=== PATIENT | female | born 1995 | race Caucasian/White ===

== ENCOUNTER → 2017-01-11 | Outpatient (CLI) | payer BC ==
[2017-01-11 12:57] LABS: INFLUENZA A AG SCREEN NEGATIVE (NEGATIVE); INFLUENZA B AG SCREEN NEGATIVE (NEGATIVE)
== END ==
LOC: LAB 11:52
PROVIDERS: ATTEND Obstetrics & Gynecology
DX: Z20.820 Contact with and (suspected) exposure to varicella (principal); R68.89 Other general symptoms and signs
CPT/HCPCS: 36415; 86787; 87400

== ENCOUNTER 2017-02-10 22:17 | Outpatient (CLI) | payer BC ==
[2017-02-10] MEDS ORDERED: DiphenhydrAMINE 25 MG CAPSULE PO PRN (22:30)
[2017-02-10] MEDS ORDERED: ACETAMINOPHEN 500 MG TABLET PO PRN (22:30)
== END 2017-02-10 22:50 | disposition home or self-care (01) ==
LOC: MC 22:17 → OBOBS 22:17
PROVIDERS: ATTEND Obstetrics & Gynecology
DX: O26.893 Other specified pregnancy related conditions, third trimester (principal); R10.9 Unspecified abdominal pain; Z3A.30 30 weeks gestation of pregnancy

== ENCOUNTER 2017-02-17 16:59 | Outpatient (CLI) | payer BC ==
--- NOTE | 2017-02-17 18:59 | NUR ---
Status: Pt arrived on [facility] unit from ED with c/o groin pain. She also fell last night in shower. She also states she has some LOF, +FM. FHT were reactive, uterine irritability traced on monitor. Amnisure was negative. Dr. Mathur was updated on pt's status. Pt was monitored and SVE performed. After monitoring, Dr. Mathur ordered dc to home and to f/u with Dr. Garvin this week. Dismissal instructions reviewed with pt. Pt and family escorted off [facility] unit to ED.
== END 2017-02-17 18:58 ==
LOC: OBOBS 16:59 → MC 16:59 → OBOBS 18:58
PROVIDERS: ATTEND Obstetrics & Gynecology
DX: O26.893 Other specified pregnancy related conditions, third trimester (principal); N89.8 Other specified noninflammatory disorders of vagina; R10.9 Unspecified abdominal pain; Z3A.31 31 weeks gestation of pregnancy
CPT/HCPCS: 84112